=== PATIENT | female | born 1985 | race Caucasian/White ===

== ENCOUNTER 2021-09-12 08:29 | Emergency (ER) | payer OTHER, SELFPAY ==
--- NOTE | ~2021-09-12 | XR_ITS ---
EXAMINATION: XR chest 2V 09/12/2021 09:03 INDICATION: Chest pain PROCEDURE: 2 view chest COMPARISON: 10/13/2008 FINDINGS: The lungs are clear. The cardiomediastinal silhouette is within normal limits. There are no pleural effusions. There is no pneumothorax suspected. IMPRESSION: 1: NO ACUTE CARDIOPULMONARY DISEASE. Reviewed, dictated and finalized at location A.
[2021-09-12 08:35] VITALS: BP 182/115; PULSE 106; RESP 11; TEMP 37; O2SAT 100
--- NOTE | 2021-09-12 08:45 | ECG_ITS ---
Measurements Intervals [place] Rate: 98 P: 66 HI: 146 QRS: 53 QRSD: 102 T: 2 QT: 282 QTc: 360 Interpretive Statements SINUS RHYTHM POSSIBLE LEFT ATRIAL ENLARGEMENT BORDERLINE ST-T WAVE ABNORMALITY- INFERIOR LEADS BASELINE ARTIFACT- I, II, III, AVR, AVL BORDERLINE ECG Electronically Signed On 09-12-2021 9:13:42 CDT by José Miguel Glynn D.O.
[2021-09-12 08:57] LABS: Basophils Absolute Auto 0.1 K/mm3 (0.0-0.1); Basophils Percent Auto 0.6 % (0.2-1.2); Eosinophils Absolute Auto 0.2 K/mm3 (0-0.3); Eosinophils Percent Auto 0.8 % (0-4.4); Hematocrit 47.3 % (37.0-47.0); Hemoglobin 14.9 g/dL (12.0-15.0); Immature Granulocyte Absolute 0.12 K/mm3 (0.00-0.031); Immature Granulocyte Percent A 0.6 % (0-0.5); Lymphocytes Absolute Auto 4.73 K/mm3 (0.9-3.2); Lymphocytes Percent Auto 23.3 % (18.3-44.2); Mean Corpuscular HGB Conc 31.5 g/dl (32-36); Mean Corpuscular Hemoglobin 27.1 pg (26-34); Mean Platelet Volume 10.8 fl (7.4-10.4); Monocytes Absolute Auto 1.8 K/mm3 (0.1-0.6); Monocytes Percent Auto 8.8 % (2.6-8.5); Neutrophils Absolute Auto 13.4 K/mm3 (1.3-6.7); Neutrophils Percent Auto 65.9 % (45.5-73.1); Platelet Count Result 379 k/mm3 (150-375); Red Cell Distribution Width 14.6 % (11.5-14.5); White Blood Count 20.3 K/mm3 (4.5-10.0)
[2021-09-12 09:06] LABS: Alanine Aminotransferase 34 U/L (6-35); Albumin Level 4.8 g/dL (3.5-5.1); Alkaline Phosphatase 67 U/L (38-126); Anion Gap 8 mmol/L (8-16); Aspartate Amino Transferase 36 U/L (14-36); Bilirubin,Total 0.4 mg/dL (0.2-1.3); Blood Urea Nitrogen 18 mg/dL (7-17); Calcium 10.6 mg/dL (8.4-10.2); Carbon Dioxide 34 mmol/L (22-30); Chloride 95 mmol/L (98-107); Estimated CRCL calculation 89 ml/min; Estimated Glomerular Filt Rate > 60; Glucose 121 mg/dL (65-110); Magnesium 1.6 mg/dL (1.6-2.3); Potassium 3.4 mmol/L (3.4-5.0); Sodium 137 mmol/L (137-145)
[2021-09-12 09:18] LABS: Troponin I < 0.012 ng/mL (0.000-0.034)
[2021-09-12 09:25] LABS: D Dimer < 0.22 ug/mL (<0.48)
[2021-09-12 09:33] VITALS: BP 120/79; PULSE 96; RESP 18; O2SAT 98
--- NOTE | 2021-09-12 09:39 | ED.RECABL ---
HPI - Recheck/Abnormal Lab/Rx General Chief Complaint: Recheck/Abnormal Lab/Rx Stated Complaint: I have a list of problems Time Seen by Provider: 09/12/21 08:40 History of Present Illness HPI narrative: 36-year-old female who states that this is her third ER visit for nonspecific chest pain has been ongoing for the last few weeks, she had been diagnosed with likely COPD exacerbation and treated with steroids then inhaler with only mild relief, she states that she feels like there twinges moving around in her chest, and in her hands, and that has been ongoing for a year. She states that she was told she has high white blood cell count. No nausea or vomiting, no fevers or chills. Related Data Allergies Allergy/AdvReac Type Severity Reaction Status Date / Time No Known Allergies Allergy Verified 09/12/21 08:43 Review of Systems Review of Systems: CONST: No fever. HEENT: No sore throat C/V: Chest discomfort RESP: Difficulty breathing GI: No nausea or vomiting : No dysuria. M/S: Discomfort in her right arm SKIN: No rash. NEURO: [No focal numbness or weakness] PSYCH: [No depression] [facility] Past Medical History Medical History (Updated 09/12/21 @ 11:10 by Marcia Dalton MD) COPD (chronic obstructive pulmonary disease) Social History Social History (Updated 09/12/21 @ 09:41 by Marcia Dalton MD) Smoking status: Current every day smoker Exam Narrative: EXAMINATION OF ORGAN SYSTEMS/BODY AREAS: Constitutional: Vital signs per nursing GENERAL:[No acute distress, non-toxic appearing.] HEAD: Normal with no signs of head trauma. EYES: EOMI, conjunctiva normal ENT: Hearing grossly intact LUNGS: Nonlabored breathing. HEART: Initially tachycardic ABD: [Soft], [nontender to palpation] EXT: Normal range of motion SKIN: [No rashes or lesions.] NEURO: [Alert and oriented x 3. No gross focal sensory or strength deficits.] PSYCH: Normal affect Course Vital Signs Vital signs: Vital Signs Temperature 98.6 F 09/12/21 08:35 Pulse Rate 106 H 09/12/21 08:35 Respiratory Rate 11 L 09/12/21 08:35 Blood Pressure 182/115 H 09/12/21 08:35 Pulse Oximetry 100 09/12/21 08:35 Oxygen Delivery Room Air 05/31/22 08:35 Temperature 98.6 F 09/12/21 08:35 Pulse Rate 81 09/12/21 10:18 Respiratory Rate 17 09/12/21 10:18 Blood Pressure 124/78 09/12/21 10:18 Pulse Oximetry 98 09/12/21 10:18 Oxygen Delivery Room Air 09/12/21 08:35 MDM - Recheck/Abnormal Lab/Rx MDM Narrative Medical decision making narrative: 36-year-old female presenting with chest pain, this is the third place she has been to for this, vital signs initially tachycardic, exam unremarkable cardiopulmonary exam, differential includes pneumonia, anxiety, COPD exacerbation, pneumothorax, hyperthyroidism. Labs are unremarkable, chest unremarkable, patient reassured and she has follow-up with her primary care doctor in 2 days. Stable forl discharge home with return precautions. Lab Data Result diagrams: 09/12/21 08:47 09/12/21 08:47 Labs: Lab Results 09/12/21 09/12/21 09/12/21 Range/Units 08:47 08:47 08:47 WBC 20.3 H (4.5-10.0) K/mm3 RBC 5.50 H (4.2-5.4) M/mm3 Hgb 14.9 (12.0-15.0) g/dL Hct 47.3 H (37.0-47.0) % MCV 86.0 (80-100) fl MCH 27.1 (26-34) pg MCHC 31.5 L (32-36) g/dl RDW 14.6 H (11.5-14.5) % Plt Count 379 H (150-375) k/mm3 MPV 10.8 H (7.4-10.4) fl Immature Gran % (Auto) 0.6 H (0-0.5) % Neut % (Auto) 65.9 (45.5-73.1) % Lymph % (Auto) 23.3 (18.3-44.2) % [place] % (Auto) 8.8 H (2.6-8.5) % Eos % (Auto) 0.8 (0-4.4) % Baso % (Auto) 0.6 (0.2-1.2) % Lymph # (Auto) 4.73 H (0.9-3.2) K/mm3 [place] # (Auto) 1.8 H (0.1-0.6) K/mm3 Eos # (Auto) 0.2 (0-0.3) K/mm3 Baso # (Auto) 0.1 (0.0-0.1) K/mm3 Abs Immat Gran (auto) 0.12 H (0.00-0.031) K/mm3 Absolute Neuts (auto) 13.4 H (1.3-6.7) K/mm3 Absolute Nu
[2021-09-12 10:18] VITALS: BP 124/78; PULSE 81; RESP 17; O2SAT 98
== END 2021-09-12 11:12 | disposition home or self-care (01) ==
PROVIDERS: Emergency Provider Emergency Medicine
DX: R07.9 Chest pain, unspecified (principal); J44.9 Chronic obstructive pulmonary disease, unspecified; F17.200 Nicotine dependence, unspecified, uncomplicated
CPT/HCPCS: 36415; 71046; 80053; 83735; 84443; 84484; 85025; 85380; 93005; 99284